=== PATIENT | female | born 1960 | race Caucasian/White ===

== ENCOUNTER → 2018-07-28 09:26 | Outpatient (CLI) | payer BC, SELFPAY ==
--- NOTE | 2018-07-28 09:33 | XR_ITS ---
XR foot RT min 3V HISTORY: ITS.REASON: RT FOOT PAIN ORDERING PHYSICIAN: Melvi Browning PATIENT AGE: 58 years COMPARISON: None FINDINGS: There is mild hallux valgus with osteoarthritis of the first MTP joint and bunion formation at the distal first metatarsal along with mild soft tissue swelling medially at the distal first metatarsal. Small enthesophyte is present at the Achilles insertion. IMPRESSION: Hallux valgus with osteoarthritis and bunion formation at the first MTP joint
--- NOTE | 2018-07-28 09:33 | XR_ITS ---
XR hip LT 2-3V w/pelvis HISTORY: ITS.REASON: BILAT HIP PAIN ORDERING PHYSICIAN: Melvi Browning PATIENT AGE: 58 years COMPARISON: None FINDINGS: No fracture or dislocation is evident. No significant degenerative change. No lytic or blastic change. Unremarkable soft tissues IMPRESSION: Negative hip
--- NOTE | 2018-07-28 09:33 | XR_ITS ---
XR hip RT 2-3V w/pelvis HISTORY: ITS.REASON: BILAT HIP PAIN ORDERING PHYSICIAN: Melvi Browning PATIENT AGE: 58 years COMPARISON: None FINDINGS: No fracture or dislocation is evident. No significant degenerative change. No lytic or blastic change. Unremarkable soft tissues IMPRESSION: Negative hip
== END ==
PROVIDERS: PCP Nurse Practitioner Family; Visit Provider Nurse Practitioner Family
DX: M25.552 Pain in left hip (principal); M25.551 Pain in right hip; M79.671 Pain in right foot
CPT/HCPCS: 73502; 73630

== ENCOUNTER → 2019-10-05 10:02 | Outpatient (CLI) | payer BC, SELFPAY ==
[2019-10-07 09:58] LABS: H. pylori Breath Test Negative (Negative)
== END ==
PROVIDERS: Visit Provider Nurse Practitioner Family
DX: R10.10 Upper abdominal pain, unspecified (principal); R14.0 Abdominal distension (gaseous)
CPT/HCPCS: 83013

== ENCOUNTER → 2020-08-30 11:31 | Outpatient (CLI) | payer BC, SELFPAY | PROVIDERS: PCP Family Medicine; Visit Provider Family Medicine | DX: Z20.828 Contact with and (suspected) exposure to other viral communicable diseases (principal); U07.1 COVID-19 | CPT/HCPCS: U0003 ==

== ENCOUNTER → 2021-04-15 15:30 | Outpatient (CLI) | payer BC, SELFPAY ==
[2021-04-15 16:14] LABS: Basophils % 0.7 % (0.1-2.0); Eosinophils # 0.2 K/mm3 (0.0-0.4); Eosinophils % 3.2 % (0.1-12.0); Hematocrit 39.4 % (37.0-47.0); Hemoglobin 13.1 g/dL (12.2-16.2); Lymphocytes # 1.7 K/mm3 (0.7-4.5); Lymphocytes % 28.7 % (10-50); Mean Corpuscular HGB Conc 33.4 g/dL (31.8-35.4); Mean Corpuscular Hemoglobin 29.4 pg (27.0-31.2); Mean Platelet Volume 8.3 fl (7.4-10.4); Monocytes # 0.4 K/mm3 (0.1-1.0); Monocytes % 7.5 % (1.7-9.3); Neutrophils # 3.5 K/mm3 (1.8-7.8); Platelet Count 227 K/mm3 (142-424); Red Blood Count 4.48 M/mm3 (4.20-5.40); Red Cell Distribution Width 12.9 % (11.5-17.5); White Blood Count 5.8 K/mm3 (4.8-10.8)
[2021-04-15 16:34] LABS: Alanine Aminotransferase 28 U/L (12-78); Albumin Level 4.6 g/dl (3.5-5.0); Albumin/Globulin Ratio 1.7 (1.1-1.8); Alkaline Phosphatase 77 U/L (38-126); Anion Gap 13.1 mEq/L (5-15); Aspartate Amino Transferase 28 U/L (14-36); Bilirubin,Total 0.4 mg/dl (0.2-1.3); Blood Urea Nitrogen 13 mg/dl (7-17); Calcium 9.2 mg/dl (8.4-10.2); Carbon Dioxide 30 mmol/L (22.0-30.0); Chloride 103 mmol/L (98-107); Estimated Glomerular Filt Rate 73 ml/min (>60); GFR (African American) 88 ML/MIN (>60); Globulin 2.7 g/dL (1.3-3.2); Glucose 78 mg/dl (74-100); Potassium 4.1 mmoL/L (3.5-5.1); Sodium 142 mmol/L (136-145); Total Protein,Serum 7.3 g/dl (6.3-8.2)
== END ==
PROVIDERS: Visit Provider Nurse Practitioner Family
DX: R10.9 Unspecified abdominal pain (principal); R11.0 Nausea
CPT/HCPCS: 36415; 80053; 85025

== ENCOUNTER → 2021-07-16 11:55 | Outpatient (CLI) | payer BC, SELFPAY ==
--- NOTE | 2021-07-16 11:59 | XR_ITS ---
PROCEDURE: XR LUMBAR SPINE MIN 4V CLINICAL INDICATION: BACK PAIN, USPECIFIED LOCATION, LATERALITY, AND CHRONICITY COMPARISON: No exams were available for comparison FINDINGS: No fracture or dislocation. No lytic or blastic change. There is normal mineralization. Minimal lumbar curvature convex left. Facet arthritic changes L5-S1. Mild multilevel degenerative disc disease at T11-T12 and L1-S1 most prominent at L4-L5. Other findings:None. IMPRESSION: Degenerative changes as detailed above Dictated by: Bc Brown MD 07/16/2021 17:35 Bc Brown MD in [place] 07/16/2021 17:35
== END ==
PROVIDERS: PCP Family Medicine; Visit Provider Family Medicine
DX: M54.9 Dorsalgia, unspecified (principal)
CPT/HCPCS: 72110

== ENCOUNTER → 2021-11-28 12:43 | Outpatient (CLI) | payer BC, SELFPAY ==
--- NOTE | 2021-11-28 12:52 | CT_ITS ---
FINAL REPORT TECHNIQUE: Thin section axial CT images with coronal reformats were obtained through the neck after the administration of IV contrast. This study was performed with techniques to keep radiation doses as low as reasonably achievable (ALARA). Individualized dose reduction techniques using automated exposure control or adjustment of mA and/or kV according to the patient''s size were employed. CLINICAL HISTORY: HOARSENESS,THYROMEGALY,CERVICAL LYMPHADENOPATHY COMPARISON: July 28, 2016 FINDINGS: There are a few small scattered cervical lymph nodes. No mass is identified. The thyroid is unremarkable. Limited images of the lung apices are unremarkable. The glottis and supraglottic areas are unremarkable. No acute osseous abnormality is identified. IMPRESSION: No acute process. Reviewed, Interpreted and Dictated by Ugo Montoya MD Transcribed by Fabricio Martin Authenticated by Ugo Montoya MD on 11/28/2021 03:40:48 PM [facility]
== END ==
PROVIDERS: PCP Family Medicine; Visit Provider Nurse Practitioner Family
DX: E01.0 Iodine-deficiency related diffuse (endemic) goiter (principal); R59.0 Localized enlarged lymph nodes; R49.0 Dysphonia
CPT/HCPCS: 70491; Q9967

== ENCOUNTER 2022-01-24 10:37 | Emergency (ER) | payer BC, OTHER, SELFPAY ==
[2022-01-24 10:58] VITALS: BP 172/85; PULSE 90; RESP 16; TEMP 36.8; O2SAT 95; BMI 35.5
--- NOTE | 2022-01-24 11:04 | HMH.EDUTC ---
[facility] [place] Disposition Clinical Impression: UTI (urinary tract infection) Qualifiers: Urinary tract infection type: site unspecified Hematuria presence: with hematuria Qualified Code(s): N39.0 - Urinary tract infection, site not specified Disposition: Home, Self-Care Condition on Discharge: Good Instructions: Urinary Tract Infection, DI for Urinary Tract Infection (UTI), Phenazopyridine Additional Instructions: Drink plenty of fluids. Take tylenol or ibuprofen for pain or fever. Take the medications as directed. Follow up with your regular doctor. GO TO THE ER FOR ANY WORSENING SYMPTOMS The pyridium will make your urine turn orange, this is an expected side effect. It will stain your clothes if it comes into contact with them. We will culture the urine. That will tell what bacteria is causing your infection and which antibiotics will treat it best. Sometimes the first antibiotic we prescribe turns out to not work against different bacteria. So, make sure you follow up within 3 days if you are not getting better. Prescriptions: Ondansetron [Zofran 4mg ODT] 4 mg PO Q8HP PRN #20 tab PRN Reason: Nausea Transmission Status: Received by [facility] Sulfamethoxazole/Trimethoprim [Bactrim DS tablet] 1 each PO BID 7 Days #14 tab Transmission Status: Received by [facility] Phenazopyridine HCl [Pyridium 200mg Tablet] 200 pow PO TID #6 tab Transmission Status: Received by [facility] Referrals: Melvi Browning APRN [Primary Care Provider] - Time of Disposition: 12:13 Medical Decision Making - Medical Records Medical records reviewed: No: I reviewed the patient's medical records. - Aaron Inquiry Pt receiving controlled substance: No Vital Signs: 01/24/22 10:58 01/24/22 12:16 Temperature 98.2 F 98.2 F Temperature Source Oral Pulse Rate 90 Pulse Rate [Left Radial] 90 Respiratory Rate 16 16 Blood Pressure 172/85 H Blood Pressure [Right Arm] 172/85 H Blood Pressure Mean [Right Arm] 114 02 Sat by Pulse Oximetry 95 - Lab Data Lab results reviewed: Yes: I reviewed the patient's lab results. Lab Results 01/24/22 11:55: Urine Color Yellow, Urine Appearance Cloudy, Urine pH 7.0, Ur Specific [place] 1.015, Urine Protein Negative, Urine Glucose (UA) Negative, Urine Ketones Negative, Urine Blood Trace, Urine Nitrate Negative, Urine Bilirubin Negative, Urine Urobilinogen 0.2, Ur Leukocyte Esterase 3+ A Orders (Tests/Meds): ORDERS Category Date Time Status Urine Culture Stat Micro 01/24/22 10:55 Results [facility] [place] HPI - General Stated complaint: possible uti Time Seen by Provider: 01/24/22 11:04 Mode of Arrival: Ambulatory Source of Information: Patient Limitations: No Limitations Description of Symptoms (Recalled from Triage Doc. by RN): UTI symptoms that started 3 days ago. hurts to pee. HEENT Symptoms (Recalled from RN notes): No Resp Symptoms (Recalled from RN notes): No Skin Symptoms (Recalled from RN notes): No MS Symptoms (Recalled from RN notes): No Functional Status (Recalled from RN notes): wnl - History of Present Illness Provider Complaint: She states that for the past 3 days she has had burning with urination and low back pain. She gets uti's occasionally and this feels like her normal symptoms with them. - Related Data Home Medications Medication Instructions Recorded Confirmed hydrochlorothiazide 12.5 mg capsule 12.5 mg PO QDAY 10/06/17 07/04/19 meloxicam 7.5 mg/5 mL oral 7.5 mg PO QDAY 10/06/17 07/04/19 suspension pantoprazole 40 mg granules 40 mg PO QAM 10/06/17 07/04/19 delayed-release for susp in packet rosuvastatin 10 mg tablet 10 mg PO ONCE 10/06/17 07/04/19 estradiol 25 mcg vaginal tablet 25 mcg VAGINAL DAILY tab 05/31/19 07/04/19 lactobacillus combination no.8 3 3,000 mmu cells PO DAILY 05/31/19 07/04/19 billion cell capsule Ascorbic Acid [Vitamin C] 250 mg PO DAILY 06/21/19 07/04/19 Fexofenadine HCl [Diana Allerg
[2022-01-24 11:56] LABS: Apearance,Urine Cloudy (Clear); Color,Urine Yellow (Yellow)
[2022-01-24 11:57] LABS: Bilirubin,Urine Negative (Negative); Blood, Urine Trace (Negative); Glucose,Urine (UA) Negative (Negative); Ketones,Urine Negative (Negative); Protein,Urine Negative (Negative); Specific Gravity, Urine 1.015 (1.005-1.030)
[2022-01-24 11:58] LABS: UTC Leukocyte Esterase,Urine 3+ (Negative); UTC Nitrate,Urine Negative (Negative); Urobilinogen,Urine 0.2 EU/dl (0.2)
[2022-01-24 12:16] VITALS: BP 172/85; PULSE 90; RESP 16; TEMP 36.8
== END 2022-01-24 12:17 | disposition home or self-care (01) ==
PROVIDERS: Emergency Provider Nurse Practitioner Family; PCP Nurse Practitioner Family
DX: N39.0 Urinary tract infection, site not specified (principal); M54.50 Low back pain, unspecified; I10 Essential (primary) hypertension; K21.9 Gastro-esophageal reflux disease without esophagitis; E78.5 Hyperlipidemia, unspecified; M19.90 Unspecified osteoarthritis, unspecified site; J98.4 Other disorders of lung; Z88.0 Allergy status to penicillin; J45.909 Unspecified asthma, uncomplicated; Z88.1 Allergy status to other antibiotic agents; Z88.3 Allergy status to other anti-infective agents; Z82.49 Family history of ischemic heart disease and other diseases of the circulatory system; Z80.9 Family history of malignant neoplasm, unspecified
CPT/HCPCS: 81003; 87086; 87088; 87186; 99213; G0463

== ENCOUNTER 2022-04-25 09:48 | Emergency (ER) | payer BC, OTHER, SELFPAY ==
[2022-04-25 10:15] VITALS: BP 150/75; PULSE 85; RESP 19; TEMP 36.9; O2SAT 98; BMI 36.3
--- NOTE | 2022-04-25 10:33 | HMH.EDUTC ---
[facility] [place] Disposition Clinical Impression: Sinusitis Qualifiers: Sinusitis location: maxillary Chronicity: acute Recurrence: non-recurrent Qualified Code(s): J01.00 - Acute maxillary sinusitis, unspecified Disposition: Home, Self-Care Condition on Discharge: Good Instructions: DI for Sinusitis Additional Instructions: Start antibiotic patient to take as ordered for a full length of time even if you feel better. Sinus infections do not get better overnight. It may take 2-3 days to notice much improvement so be sure to use conservative measures as discussed for symptoms. Flonase 1 spray each nostril daily to help with nasal congestion, sinus and ear pressure/information Increase fluids Humidifier/vaporizer as needed Tylenol and ibuprofen as needed for fever or pain. If symptoms do not improve or get worse return or be seen in the ER Follow-up with primary care this week Prescriptions: predniSONE [Prednisone 20mg Tab] 20 mg PO BID #10 tab Transmission Status: Pending to [facility] Azithromycin [Zithromax 250mg tab] 250 mg PO DIRECTED #6 tab Transmission Status: Pending to [facility] Referrals: Melvi Browning APRN [Primary Care Provider] - Time of Disposition: 10:56 Medical Decision Making - Aaron Inquiry Pt receiving controlled substance: No Vital Signs: 04/25/22 10:15 Temperature 98.4 F Temperature Source Oral Pulse Rate [Left Brachial] 85 Respiratory Rate 19 Blood Pressure [Left Arm] 150/75 H Blood Pressure Mean [Left Arm] 100 Blood Pressure Source [Left Arm] Automatic Cuff Blood Pressure Position [Left Arm] Sitting 02 Sat by Pulse Oximetry 98 Oxygen Delivery Method Room Air - Lab Data Lab Results 04/25/22 10:33: Strep [facility] Negative Orders (Tests/Meds): ORDERS Category Date Time Status Strep Screen Confirmation Stat Micro 04/25/22 10:33 Received [facility] [place] HPI - General Chief complaint: Urgent [facility] Stated complaint: sore throat,cough Time Seen by Provider: 04/25/22 10:34 Mode of Arrival: Ambulatory Source of Information: Patient Limitations: No Limitations Description of Symptoms (Recalled from Triage Doc. by RN): PATIENT C/O SORE THROAT AND DRY COUGH X 1 WEEK HEENT Symptoms (Recalled from RN notes): Yes Resp Symptoms (Recalled from RN notes): Yes Skin Symptoms (Recalled from RN notes): No MS Symptoms (Recalled from RN notes): No Functional Status (Recalled from RN notes): WNL - Related Data Home Medications Medication Instructions Recorded Confirmed hydrochlorothiazide 12.5 mg capsule 12.5 mg PO QDAY 10/06/17 07/04/19 meloxicam 7.5 mg/5 mL oral 7.5 mg PO QDAY 10/06/17 07/04/19 suspension pantoprazole 40 mg granules 40 mg PO QAM 10/06/17 07/04/19 delayed-release for susp in packet rosuvastatin 10 mg tablet 10 mg PO ONCE 10/06/17 07/04/19 estradiol 25 mcg vaginal tablet 25 mcg VAGINAL DAILY tab 05/31/19 07/04/19 lactobacillus combination no.8 3 3,000 mmu cells PO DAILY 05/31/19 07/04/19 billion cell capsule Ascorbic Acid [Vitamin C] 250 mg PO DAILY 06/21/19 07/04/19 Fexofenadine HCl [Diana Allergy] 60 mg PO DAILY 06/21/19 07/04/19 Lysine 500 mg PO DAILY 06/21/19 07/04/19 Oxybutynin Chloride [Oxybutynin 10 mg PO DAILY 06/21/19 07/04/19 Chloride ER] Beclomethasone Dipropionate [Qvar 10.6 gm IH DAILY 06/22/19 07/04/19 Redihaler] Sodium, Potassium,Mag Sulfates 177 ml PO DAILY 06/22/19 07/04/19 [Suprep Bowel Prep Kit] Previous Rx's Medication Instructions Recorded Ondansetron [Zofran 4mg ODT] 4 mg PO Q4H PRN #10 tab.rapdis 09/30/19 raNITIdine HCL [Ranitidine HCl] 150 mg PO BID #60 tab 09/30/19 Ondansetron [Zofran 4mg ODT] 4 mg PO Q8HP PRN #20 tab 01/24/22 Phenazopyridine HCl [Pyridium 200 pow PO TID #6 tab 01/24/22 200mg Tablet] Sulfamethoxazole/Trimethoprim 1 each PO BID 7 Days #14 tab 01/24/22 [Bactrim DS tablet] Azithromycin [Zithromax 250mg 250 mg PO DIRECTED #6 tab 04/25/22 tab
[2022-04-25 10:34] LABS: UTC Strep Screen (Rapid) Negative (Negative)
[2022-04-25 10:55] VITALS: BP 150/75; PULSE 85; RESP 19; TEMP 36.9; O2SAT 98
[2022-04-25 11:15] LABS: Adenovirus,PCR Not Detected (NotDetected); Bordetella Pertussis Not Detected (NotDetected); Chlamydophila Pneumoniae, PCR Not Detected (NotDetected); Coronavirus 19, PCR Not Detected (NotDetected); Coronavirus 229E Not Detected (NotDetected); Coronavirus NL63 Not Detected (NotDetected); Coronavirus OC43 Not Detected (NotDetected); Coronovirus HKU1,PCR Not Detected (NotDetected); Human Metapneumovirus Not Detected (NotDetected); Influenza A, PCR Not Detected (NotDetected); Influenza AH1, 2009 Not Detected (NotDetected); Influenza AH1, PCR Not Detected (NotDetected); Influenza AH3,PCR Not Detected (NotDetected); Influenza B, PCR Not Detected (NotDetected); Mycoplasma Pneumoniae, PCR Not Detected (NotDetected); Parainfluenza 1, PCR Not Detected (NotDetected); Parainfluenza 2, PCR Not Detected (NotDetected); Parainfluenza 4, PCR Not Detected (NotDetected); Respiratory Syncytial Virus Not Detected (NotDetected); Rhinovirus/Enterovirus Not Detected (NotDetected)
[2022-04-25 13:28] LABS: Parainfluenza 3, PCR Detected (NotDetected)
== END 2022-04-25 11:01 | disposition home or self-care (01) ==
PROVIDERS: Emergency Provider Nurse Practitioner Family; PCP Nurse Practitioner Family
DX: J01.00 Acute maxillary sinusitis, unspecified (principal)
CPT/HCPCS: 87581; 87632; 87798; 87880; 99212; C9803; G0463; U0003; U0005

== ENCOUNTER → 2022-09-09 06:41 | Outpatient (CLI) | payer BC, OTHER, SELFPAY ==
--- NOTE | 2022-09-09 06:42 | CA_ITS ---
FINAL REPORT TECHNIQUE: Color Doppler, duplex Doppler and klein scale sonography of the bilateral neck arterial vasculature was performed. Velocities were measured in the carotid arteries. Stenosis evaluation based on the validated velocity criteria. CLINICAL HISTORY: chest pain, carotid bruits FINDINGS: The peak systolic velocity of the right common carotid artery is 96 cm/s. The peak systolic velocity of the right internal carotid artery is 116 cm/s and end diastolic velocity 47 cm/s. The ICA/CCA ratio is 1.2. A mild amount of plaque is present. The right external carotid artery is patent. The right vertebral artery is patent with antegrade flow. The peak systolic velocity of the left common carotid artery is 97 cm/s. The peak systolic velocity of the left internal carotid artery is 117 cm/s and end diastolic velocity 45 cm/s. The ICA/CCA ratio is 1.2. A mild amount of plaque is present. The left external carotid artery is patent.The left vertebral artery is patent with antegrade flow. IMPRESSION: Less than 50% bilateral carotid stenoses. Bilateral patent vertebral arteries with antegrade flow. If indicated, CTA or MRA could further evaluate. Reviewed, Interpreted and Dictated by Neno Hernandez III, MD Transcribed by Jacqueline Hester Authenticated and [facility]
--- NOTE | 2022-09-09 08:26 | HMH.ITSHM ---
Current Home Medications as stated by this patient Elena Infante or inventory representative. []ROSUVASTATIN PANTOPRAZOLE OXYBUTYNIN MELOXICAM HCTZ FEXOFENADINE VITAMIN C AMLODIPINE
== END ==
PROVIDERS: PCP Nurse Practitioner Family; Visit Provider Nurse Practitioner Family
DX: R06.09 Other forms of dyspnea (principal); R07.89 Other chest pain; I10 Essential (primary) hypertension; R94.31 Abnormal electrocardiogram [ECG] [EKG]
CPT/HCPCS: 78452; 93017; 93306; 93880; A9502

== ENCOUNTER → 2023-01-19 15:10 | Outpatient (CLI) | payer BC, OTHER, SELFPAY ==
--- NOTE | 2023-01-19 15:17 | XR_ITS ---
FINAL REPORT CLINICAL HISTORY: HAND PAIN FINDINGS: Left hand Three views were obtained. There is no acute fracture or dislocation. Mild and moderate degenerative changes are present. There are loose bodies adjacent to the 1st carpometacarpal and 1st interphalangeal joints. IMPRESSION: Degenerative changes and loose bodies as detailed above. Reviewed, Interpreted and Dictated by Neno Hernandez III, MD Transcribed by Shari Nolasco Authenticated and [facility]
--- NOTE | 2023-01-19 15:17 | XR_ITS ---
FINAL REPORT CLINICAL HISTORY: .Pain, no injury. FINDINGS: Right hand Three views were obtained. There is no acute fracture or dislocation. Mild and moderate degenerative changes are present. There is a loose body adjacent to the 1st interphalangeal joint. IMPRESSION: Degenerative changes and loose body as detailed above. Reviewed, Interpreted and Dictated by Neno Hernandez III, MD Transcribed by Shari Nolasco Authenticated and [facility]
== END ==
PROVIDERS: PCP Nurse Practitioner Family; Visit Provider Nurse Practitioner Family
DX: M79.642 Pain in left hand (principal); M79.641 Pain in right hand
CPT/HCPCS: 73130

== ENCOUNTER → 2023-07-16 14:35 | Outpatient (CLI) | payer BC, OTHER, SELFPAY ==
--- NOTE | 2023-07-16 14:36 | MR_ITS ---
FINAL REPORT CLINICAL HISTORY: abnormal LE NCS pain when standing long period of time numbness in bilateral feet COMPARISON: None FINDINGS: Multiplanar MR imaging of the lumbar spine was performed without contrast. On the sagittal T2-weighted images, disc degeneration is seen throughout. There is mild degenerative endplate change at the L4-5 level. Multiple Schmorl's nodes are identified. The vertebral alignment is normal. There is no evidence of fracture. No bony mass is identified. The conus has an unremarkable appearance. L1-2: An annular bulge is present along with a small central disc protrusion. There is no significant canal stenosis or neural foraminal narrowing. L2-3: An annular bulge is present along with a small central disc protrusion. There is also a left foraminal disc protrusion with moderate left neural foraminal narrowing. L3-4: An annular bulge is present. Mild bilateral neural foraminal narrowing is present. L4-5: An annular bulge is present with osteophytes and facet osteoarthropathy. There is a left paracentral disc protrusion with moderate bilateral neural foraminal narrowing. L5-S1: An annular bulge is present with osteophytes. There is a small central disc protrusion, with mild right and moderate left neural foraminal narrowing. IMPRESSION: Multilevel degenerative disc disease and spondylosis as described. Reviewed, Interpreted and Dictated by Neno Hernandez III, MD Transcribed by Cait Flood Authenticated and . [facility]
== END ==
PROVIDERS: PCP Nurse Practitioner Family; Visit Provider Nurse Practitioner Family
DX: R94.130 Abnormal response to nerve stimulation, unspecified (principal); G62.9 Polyneuropathy, unspecified
CPT/HCPCS: 72148; 76376

== ENCOUNTER → 2023-07-20 11:49 | Outpatient (CLI) | payer BC, OTHER, SELFPAY ==
--- NOTE | 2023-07-20 11:54 | XR_ITS ---
FINAL REPORT CLINICAL HISTORY: left elbow pain FINDINGS: LEFT ELBOW 3 views were obtained. There is no acute fracture or dislocation. There is no joint effusion. There are mild degenerative change. There is no soft tissue abnormality. IMPRESSION: No acute process. Reviewed, Interpreted and Dictated by Neno Hernandez III, MD Transcribed by Fabricio Martin Authenticated and [facility]
== END ==
PROVIDERS: PCP Nurse Practitioner Family; Visit Provider Nurse Practitioner Family
DX: M25.522 Pain in left elbow (principal)
CPT/HCPCS: 73080

== ENCOUNTER 2023-09-29 09:30 | Outpatient (RCR) | payer BC, OTHER, SELFPAY | END 2023-09-29 10:30 | disposition home or self-care (01) | LOC: PT 09:30 | PROVIDERS: PCP Nurse Practitioner Family; Visit Provider Orthopaedic Surgery | DX: M51.36 Other intervertebral disc degeneration, lumbar region (principal); M54.50 Low back pain, unspecified | CPT/HCPCS: 97010; 97012; 97014; 97110; 97163; 97530; 97535; G0283 ==

== ENCOUNTER 2023-10-12 07:19 | Day surgery (SDC) | payer BC, OTHER, SELFPAY ==
[2023-10-08 10:45] VITALS: BMI 35.8
[2023-10-12] VITALS (10 sets, daily range): BP systolic 95–152; BP diastolic 48–80; PULSE 62–94; RESP 18; TEMP 36.1–36.8; O2SAT 90–97
[2023-10-12] MEDS: LACTATED RINGERS 1000ML 1,000 ML 100 ML IV (07:39)
--- NOTE | 2023-10-12 07:45 | EXP.ANES.CKL ---
[facility] Disclaimer: The information contained in this section may have been updated after the patient was seen, as this information can be updated by other users. Medical History Acid reflux Allergies Asthma Bulging disc Ear infection History of COVID-19 Hyperlipidemia Hypertension Irritable bowel syndrome (IBS) Sinus headache Urinary tract infection Surgical History H/O: hysterectomy History of cholecystectomy Family History Father Cancer Diabetes Heart attack Hypertension Mother Stroke Social History Smoking Status: Never smoker alcohol intake: current substance use type: denies use current occupational status: retired Travel in the last 8 weeks: None caffeine: Yes [facility] Anesthesia Checklist Patient Identification Patient Identification: Arm Band and Verbal (Name & ) Structural Data Admitted From: Home Planned Operative Procedure/s: EGD/Colonoscopy Consent for Planned Operative Procedure(s) Verified: Yes NPO Status Verified Time NPO: 00:00 Additional verifications Anesthesia Reactions: No Airway Assessment Mallampati Score:: Class II C-Spine Mobility Assessed: Yes TMJ Mobility Assessed: Yes Dentition: Good Dentition Neurological Assessment Level of Consciousness: Awake Hx Seizures: No Numbness or tingling in extremities: No Anesthesia Plan Anesthesia Risk discussed: Yes Anesthesia Plan: Verified ASA Class: III Anesthesia Type: MAC
--- NOTE | 2023-10-12 07:50 | HMH.SCOPE ---
Procedure: Date: 10/12/23 Patient Date of :: 1960 Procedure Performed:: Esophagogastroduodenoscopy with biopsy Colonoscopy Indications:: History of colon polyps History of intestinal metaplasia of gastric mucosa Last esophagogastroduodenoscopy/colonoscopy in June 2019 was somewhat complicated by fairly profound spasticity and significant tortuosity. Adenomatous polyps excised at 35 cm and at 40 cm. Gastric biopsies at that time negative for metaplasia. Performing Provider:: Tyshawn Khan MD Referring Provider:: . Sedation:: Monitored anesthesia care Procedure:: After informed consent was obtained the patient was taken to the endoscopy suite. Sedation ensued after the patient was transferred to the left lateral decubitus position. Pulse, blood pressure, and oxygen saturation were monitored throughout the procedure. The endoscope was advanced beyond the duodenal bulb. Retroflexion within the gastric lumen was accomplished. The gastroscope was carefully removed. Digital rectal exam revealed no significant abnormality. The colonoscope was placed in position. The entire colon was evaluated. The colonoscope was carefully removed and the patient was transferred to recovery in stable condition. Please see findings and specimens below for detail. Findings:: Mild patchy gastritis Mid gastric body fundic gland polyp Bowel preparation fair Profound sigmoid tortuosity Scattered sigmoid diverticulosis Specimens:: Antral biopsy Mid gastric body polyp Recommendations:: Follow-up pathology Repeat colonoscopy in 3-5 years secondary to history of complex polyps and profound tortuosity. Consider next colonoscopy to be performed by the gastroenterology service secondary to these findings. Complications:: No immediate Estimated blood obtained (mL): 1 Colonoscopy Component Colonoscopy Component Was a colonoscopy performed during today's procedure?: Yes Recommended follow up colonoscopy of at least 10 years?: No If no, follow up colonoscopy recommended in ___ years?: (See above) Reason for not recommending >/= 10 yr follow-up interval?: (See above)
== END 2023-10-12 10:55 | disposition home or self-care (01) ==
PROVIDERS: PCP Nurse Practitioner Family; Visit Provider Surgery
PROC: 0DJ08ZZ Inspection of Upper Intestinal Tract, Via Natural or Artificial Opening Endoscopic (ICD-10-PCS; CPT 43235; principal; 2023-10-12 08:30)
DX: Z12.11 Encounter for screening for malignant neoplasm of colon (principal); K29.50 Unspecified chronic gastritis without bleeding; K56.2 Volvulus; K57.30 Diverticulosis of large intestine without perforation or abscess without bleeding; K31.7 Polyp of stomach and duodenum
CPT/HCPCS: 43239; 45378; J1610; J2704

== ENCOUNTER 2023-11-01 08:52 | Outpatient (CLI) | payer BC, OTHER, SELFPAY ==
[2023-11-01 09:10] LABS: Basophils # 0.1 K/mm3 (0-0.2); Basophils % 0.9 % (0.1-2.0); Eosinophils # 0.5 K/mm3 (0.0-0.4); Eosinophils % 8.2 % (0.1-12.0); Hemoglobin 13.4 g/dL (12.2-16.2); Lymphocytes # 1.6 K/mm3 (0.7-4.5); Lymphocytes % 28.1 % (10-50); Mean Corpuscular HGB Conc 34.3 g/dL (31.8-35.4); Mean Corpuscular Hemoglobin 30.2 pg (27.0-31.2); Mean Platelet Volume 8.8 fl (7.4-10.4); Monocytes # 0.3 K/mm3 (0.1-1.0); Monocytes % 5.9 % (1.7-9.3); Neutrophils # 3.3 K/mm3 (1.8-7.8); Platelet Count 223 K/mm3 (142-424); Red Blood Count 4.43 M/mm3 (4.20-5.40); Red Cell Distribution Width 13.2 % (11.5-17.5); White Blood Count 5.8 K/mm3 (4.8-10.8)
[2023-11-01 09:55] LABS: Alanine Aminotransferase 35 U/L (12-78); Albumin Level 4.5 g/dl (3.5-5.0); Alkaline Phosphatase 73 U/L (38-126); Anion Gap 11.3 mEq/L (5-15); Aspartate Amino Transferase 31 U/L (14-36); Bilirubin,Direct 0.2 mg/dl (0.0-0.4); Bilirubin,Indirect 0.3 mg/dL (0.0-0.9); Bilirubin,Total 0.5 mg/dl (0.2-1.3); Bilirubin,Unconjugated 0.3 mg/dL (0.0-1.1); Blood Urea Nitrogen 20 mg/dl (7-17); Calcium 9.4 mg/dl (8.4-10.2); Carbon Dioxide 28 mmol/L (22.0-30.0); Chloride 105 mmol/L (98-107); Chol/HDL Ratio 3.1 (1-3.5); Cholesterol 173 mg/dl (140-200); Estimated Glomerular Filt Rate 85 ml/min (>60); GFR (African American) 102 ML/MIN (>60); Glucose 96 mg/dl (74-100); HDL Cholesterol 55 mg/dl (40-60); Magnesium 2.2 mg/dl (1.6-2.3); Potassium 4.3 mmoL/L (3.5-5.1); Sodium 140 mmol/L (136-145); Total Protein,Serum 7.1 g/dl (6.3-8.2); Triglycerides 150 mg/dl (30-150); VLDL Cholesterol 30 mg/dL (0-40)
[2023-11-01 10:07] LABS: Direct LDL Cholesterol 81.44 mg/dL (100-129)
[2023-11-01 10:12] LABS: Free T4 (Free Thyroxine) 0.93 ng/dl (0.78-2.19)
[2023-11-01 10:26] LABS: Thyroid Stimulating Hormone 2.51 uIU/mL (0.465-4.68)
== END 2023-11-01 23:59 ==
LOC: LAB 08:53
PROVIDERS: PCP Nurse Practitioner Family; Visit Provider Physician Assistant
DX: E78.5 Hyperlipidemia, unspecified (principal); I10 Essential (primary) hypertension; R94.31 Abnormal electrocardiogram [ECG] [EKG]; Z79.899 Other long term (current) drug therapy
CPT/HCPCS: 36415; 80048; 80061; 80076; 83735; 84439; 84443; 85025

== ENCOUNTER 2024-03-01 12:25 | Outpatient (CLI) | payer BC, OTHER, SELFPAY ==
--- NOTE | 2024-03-01 12:34 | XR_ITS ---
FINAL REPORT CLINICAL HISTORY: right knee pain, swelling x few weeks COMPARISON: None FINDINGS: Three views of the right knee were obtained. There is no acute fracture or dislocation. The joint spaces are intact. There is no soft tissue abnormality. IMPRESSION: No acute bony abnormality. Reviewed, Interpreted and Dictated by Ugo Montoya MD Transcribed by Heather Sarkar Authenticated and [facility]
== END 2024-03-01 23:59 | disposition home or self-care (01) ==
LOC: RAD 12:26
PROVIDERS: PCP Nurse Practitioner Family; Visit Provider Nurse Practitioner Family
DX: M25.561 Pain in right knee (principal)
CPT/HCPCS: 73562

== ENCOUNTER 2024-04-18 12:07 | Outpatient (CLI) | payer BC, OTHER, SELFPAY ==
[2024-04-18 12:33] LABS: Basophils % 0.5 % (0.1-2.0); Eosinophils # 0.4 K/mm3 (0.0-0.4); Eosinophils % 6.8 % (0.1-12.0); Hemoglobin 12.5 g/dL (12.2-16.2); Lymphocytes # 1.6 K/mm3 (0.7-4.5); Lymphocytes % 25.2 % (10-50); Mean Corpuscular HGB Conc 33.9 g/dL (31.8-35.4); Mean Corpuscular Volume 91.4 fl (81-99); Mean Platelet Volume 9.4 fl (7.4-10.4); Monocytes # 0.4 K/mm3 (0.1-1.0); Monocytes % 5.8 % (1.7-9.3); Neutrophils % 61.6 % (37.0-80.0); Platelet Count 218 K/mm3 (142-424); Red Blood Count 4.05 M/mm3 (4.20-5.40); Red Cell Distribution Width 14.1 % (11.5-17.5); White Blood Count 6.4 K/mm3 (4.8-10.8)
[2024-04-18 13:42] LABS: Alanine Aminotransferase 27 U/L (12-78); Albumin Level 4.2 g/dl (3.5-5.0); Albumin/Globulin Ratio 1.7 (1.1-1.8); Alkaline Phosphatase 85 U/L (38-126); Anion Gap 11.9 mEq/L (5-15); Aspartate Amino Transferase 30 U/L (14-36); Bilirubin,Total 0.6 mg/dl (0.2-1.3); Blood Urea Nitrogen 16 mg/dl (7-17); Calcium 9.4 mg/dl (8.4-10.2); Carbon Dioxide 27 mmol/L (22.0-30.0); Chloride 106 mmol/L (98-107); Estimated Glomerular Filt Rate 101 ml/min (>60); GFR (African American) 122 ML/MIN (>60); Globulin 2.5 g/dL (1.3-3.2); Glucose 90 mg/dl (74-100); Magnesium 1.9 mg/dl (1.6-2.3); Potassium 3.9 mmoL/L (3.5-5.1); Sodium 141 mmol/L (136-145); Total Protein,Serum 6.7 g/dl (6.3-8.2)
== END 2024-04-18 23:59 | disposition home or self-care (01) ==
LOC: LAB.DROPOF 12:07
PROVIDERS: PCP Nurse Practitioner Family; Visit Provider Nurse Practitioner Family
DX: R30.0 Dysuria (principal); N39.0 Urinary tract infection, site not specified; R25.2 Cramp and spasm
CPT/HCPCS: 80053; 83735; 85025; 87086; 87088; 87186

== ENCOUNTER 2024-05-08 13:05 | Outpatient (CLI) | payer BC, OTHER, SELFPAY ==
[2024-05-08 13:02] LABS: Microscopic, Urine URINE MICROSCOPIC (MICROSCOPIC)
[2024-05-08 14:24] LABS: Appearance,Urine CLEAR (Clear); Bilirubin,Urine Negative (Negative); Blood, Urine Negative (Negative); Color,Urine YELLOW (Yellow); Glucose,Urine (UA) Negative (Negative); Ketones,Urine Negative (Negative); Leukocyte Esterase,Urine Negative (Negative); Nitrate,Urine Negative (Negative); Protein,Urine Negative (Negative); Urobilinogen,Urine 0.2 EU/dl (0.2)
[2024-05-08 15:21] LABS: WBC,Urine Occasional #/hpf (0-3)
[2024-05-08 15:23] LABS: Bacteria,Urine Trace /lpf
== END 2024-05-08 23:59 | disposition home or self-care (01) ==
LOC: LAB.DROPOF 13:05
PROVIDERS: PCP Nurse Practitioner Family; Visit Provider Nurse Practitioner Family
DX: N30.00 Acute cystitis without hematuria (principal); N32.81 Overactive bladder
CPT/HCPCS: 81001; 87086

== ENCOUNTER 2024-07-19 12:10 | Outpatient (CLI) | payer BC, OTHER, SELFPAY ==
[2024-07-19 12:23] LABS: Microscopic, Urine URINE MICROSCOPIC (MICROSCOPIC)
[2024-07-19 12:27] LABS: Basophils # 0.1 K/mm3 (0-0.2); Basophils % 0.9 % (0.1-2.0); Eosinophils # 0.3 K/mm3 (0.0-0.4); Hematocrit 38.2 % (37.0-47.0); Lymphocytes # 1.7 K/mm3 (0.7-4.5); Lymphocytes % 32.4 % (10-50); Mean Corpuscular HGB Conc 34.1 g/dL (31.8-35.4); Mean Corpuscular Hemoglobin 30.7 pg (27.0-31.2); Mean Corpuscular Volume 90.3 fl (81-99); Mean Platelet Volume 8.9 fl (7.4-10.4); Monocytes # 0.3 K/mm3 (0.1-1.0); Neutrophils % 56.7 % (37.0-80.0); Platelet Count 216 K/mm3 (142-424); Red Blood Count 4.23 M/mm3 (4.20-5.40); Red Cell Distribution Width 13.3 % (11.5-17.5); White Blood Count 5.3 K/mm3 (4.8-10.8)
[2024-07-19 12:44] LABS: Albumin Level 4.5 g/dl (3.5-5.0)
[2024-07-19 12:45] LABS: Chloride 108 mmol/L (98-107); Potassium 3.9 mmoL/L (3.5-5.1); Sodium 141 mmol/L (136-145)
[2024-07-19 12:47] LABS: Alanine Aminotransferase 39 U/L (12-78); Alkaline Phosphatase 60 U/L (38-126); Anion Gap 7.9 mEq/L (5-15); Aspartate Amino Transferase 35 U/L (14-36); Bilirubin,Total 0.4 mg/dl (0.2-1.3); Blood Urea Nitrogen 17 mg/dl (7-17); Carbon Dioxide 29 mmol/L (22.0-30.0); Estimated Glomerular Filt Rate 72 ml/min (>60); GFR (African American) 87 ML/MIN (>60)
[2024-07-19 12:48] LABS: Albumin/Globulin Ratio 1.8 (1.1-1.8); Calcium 9.7 mg/dl (8.4-10.2); Chol/HDL Ratio 2.6 (1-3.5); Cholesterol 156 mg/dl (140-200); Globulin 2.5 g/dL (1.3-3.2); Glucose 116 mg/dl (74-100); HDL Cholesterol 61 mg/dl (40-60); Magnesium 2.1 mg/dl (1.6-2.3); Triglycerides 127 mg/dl (30-150); VLDL Cholesterol 25 mg/dL (0-40)
[2024-07-19 12:50] LABS: Appearance,Urine CLEAR (Clear); Bilirubin,Urine Negative (Negative); Blood, Urine Negative (Negative); Color,Urine YELLOW (Yellow); Glucose,Urine (UA) Negative (Negative); Ketones,Urine Negative (Negative); Leukocyte Esterase,Urine Negative (Negative); Nitrate,Urine Negative (Negative); PH,Urine 6.5 (5.0-8.5); Protein,Urine Negative (Negative); Urobilinogen,Urine 0.2 EU/dl (0.2)
[2024-07-19 12:59] LABS: Direct LDL Cholesterol 64.39 mg/dL (100-129)
[2024-07-19 12:59] LABS: Bacteria,Urine Trace /lpf; Squamous Epithelial Cell,Urine Occasional #/hpf (0-5)
[2024-07-19 13:22] LABS: Thyroid Stimulating Hormone 2.07 uIU/mL (0.465-4.68)
== END 2024-07-19 23:59 | disposition home or self-care (01) ==
LOC: LAB 12:10
PROVIDERS: PCP Nurse Practitioner Family; Visit Provider Nurse Practitioner Family
DX: R06.09 Other forms of dyspnea (principal); E78.2 Mixed hyperlipidemia; N30.00 Acute cystitis without hematuria; M54.9 Dorsalgia, unspecified
CPT/HCPCS: 36415; 80050; 80053; 80061; 81001; 83735; 84443; 85025; 87086

== ENCOUNTER 2024-07-24 10:46 | Outpatient (CLI) | payer BC, OTHER, SELFPAY | END 2024-07-24 23:59 | disposition home or self-care (01) | LOC: RT 10:47 | PROVIDERS: PCP Nurse Practitioner Family; Visit Provider Nurse Practitioner Family | DX: R94.31 Abnormal electrocardiogram [ECG] [EKG] (principal) | CPT/HCPCS: 93225; 93227 ==

== ENCOUNTER 2024-07-31 10:35 | Outpatient (CLI) | payer BC, OTHER, SELFPAY | END 2024-07-31 23:59 | disposition home or self-care (01) | LOC: RT 10:36 | PROVIDERS: PCP Nurse Practitioner Family; Visit Provider Nurse Practitioner Family | DX: R94.31 Abnormal electrocardiogram [ECG] [EKG] (principal) | CPT/HCPCS: 93270 ==

== ENCOUNTER 2024-08-15 13:51 | Outpatient (CLI) | payer BC, OTHER, SELFPAY ==
[2024-08-15 17:53] LABS: Coronavirus 19, PCR Not Detected (NotDetected); Influenza A, PCR Not Detected (NotDetected); Influenza B, PCR Not Detected (NotDetected)
== END 2024-08-15 23:59 | disposition home or self-care (01) ==
LOC: LAB.DROPOF 08-16 10:07
PROVIDERS: PCP Nurse Practitioner Family; Visit Provider Nurse Practitioner Family
DX: R68.89 Other general symptoms and signs (principal)
CPT/HCPCS: 87636

== ENCOUNTER 2024-09-26 18:26 | Emergency (ER) | payer BC, OTHER, SELFPAY ==
--- NOTE | 2024-09-26 18:29 | XR_ITS ---
PROCEDURE INFORMATION: Exam: XR Right Wrist Exam date and time: 09/26/2024 6:40 PM Age: 64 years old Clinical indication: Injury or trauma; Fall; Other: Pain TECHNIQUE: Imaging protocol: Radiologic exam of the right wrist. Views: 3 or more views. COMPARISON: CR XR WRIST RT MIN 3V 09/26/2024 6:40 PM FINDINGS: Bones/joints: Mildly comminuted and impacted distal radius fracture with mild dorsal displacement and least partial articular extension. Severe triscaphe and 1st carpometacarpal joint osteoarthritis. Soft tissues: Distal forearm and wrist soft tissue swelling. IMPRESSION: Mildly comminuted and impacted distal radius fracture with mild dorsal displacement and least partial articular extension.
--- NOTE | 2024-09-26 18:29 | XR_ITS ---
PROCEDURE INFORMATION: Exam: XR Right Hand Exam date and time: 09/26/2024 6:40 PM Age: 64 years old Clinical indication: Injury or trauma; Fall; Other: Pain TECHNIQUE: Imaging protocol: Radiologic exam of the right hand. Views: 3 or more views. COMPARISON: CR XR HAND RT MIN 3V 01/19/2023 3:20 PM FINDINGS: Bones/joints: Mildly comminuted and impacted distal radius fracture with mild dorsal displacement and least partial articular extension. Severe triscaphe and 1st carpometacarpal joint osteoarthritis. Additional osteoarthritic degenerative changes of the interphalangeal joints, most severe at the thumb IP and 2nd/3rd DIP joints. Soft tissues: Distal forearm and wrist soft tissue swelling. IMPRESSION: Mildly comminuted and impacted distal radius fracture with mild dorsal displacement and least partial articular extension.
--- NOTE | 2024-09-26 18:30 | XR_ITS ---
PROCEDURE INFORMATION: Exam: XR Right Forearm Exam date and time: 09/26/2024 6:40 PM Age: 64 years old Clinical indication: Injury or trauma; Fall; Other: Pain TECHNIQUE: Imaging protocol: Radiologic exam of the right forearm. Views: 2 views. COMPARISON: CR XR FOREARM RT 2V 09/26/2024 6:40 PM FINDINGS: Bones/joints: Impacted distal radius metaphyseal fracture. Soft tissues: Distal forearm and wrist soft tissue swelling. IMPRESSION: Impacted distal radius metaphyseal fracture.
[2024-09-26 18:43] VITALS: BP 163/68; PULSE 90; RESP 18; TEMP 36.6; O2SAT 98; BMI 36.0
--- NOTE | 2024-09-26 19:14 | ED_ITS ---
Discharge Plan Disposition Patient Disposition: Home, Self-Care Condition: Good Prescriptions Prescriptions: No Action hydrochlorothiazide 12.5 mg capsule 12.5 mg PO QDAY 30 Days Qty: 30 5RF tolterodine [Detrol LA] 4 mg capsule,extended release 24hr 4 mg PO DAILY Qty: 30 2RF verapamil 120 mg capsule,ext rel. pellets 24 hr 120 mg PO DAILY Qty: 30 3RF fexofenadine [Diana Allergy] 60 mg tablet 60 mg PO DAILY azelastine-fluticasone 137-50 mcg/spray spray,non-aerosol 1 spray intranasal DAILY PRN doxycycline hyclate 50 mg capsule 50 mg PO DAILY pantoprazole 40 mg tablet,delayed release (DR/EC) 40 mg PO DAILY 90 Days Qty: 90 1RF Rx Instructions: TAKE ONE TABLET BY MOUTH EVERY DAY rosuvastatin 20 mg tablet 20 mg PO DAILY Qty: 90 1RF amlodipine 5 mg tablet See Rx Instructions .ROUTE .COMPLEX Qty: 90 1RF Dose Instruction: TAKE ONE TABLET BY MOUTH EVERY DAY Rx Instructions: TAKE ONE TABLET BY MOUTH EVERY DAY meloxicam 15 mg tablet 15 mg PO DAILY 90 Days Qty: 90 2RF zinc 15 mg Tablet 15 mg PO DAILY aspirin 81 mg Capsule 81 mg PO DAILY fluticasone propionate 110 mcg/actuation HFA aerosol inhaler 1 puff INHALATION BID PRN ascorbic acid (vitamin C) 250 MG tablet 500 mg PO DAILY lysine 500 MG tablet 500 mg PO DAILY Referrals Follow up/Referrals: Trever Nuno DO [Staff Physician] - See instructions Melvi Browning APRN [Primary Care Provider] - See instructions Activity Restrictions/Add. Instructions Additional Instructions/Restrictions: Rest the extremity, apply ice for 15 minutes as tolerated three or four times per day, Elevate the extremity as tolerated while you are resting. Take tylenol or ibuprofen for pain. Follow up with Dr. Nuno (orthopedics). I put in a referral but you need to call his office and schedule an appointment. Follow up with your regular doctor. GO TO THE ER FOR ANY WORSENING SYMPTOMS Clinical Impressions Clinical Impression: Distal radius fracture, right Instructions Patient Instructions: How to Take Care of Your Splint, DI for Distal Radius Fracture Print Language Print Language: Fijian Discharge ED Provider: Donato Gaspar [facility] [place] General Stated complaint: AO 09/26 @1800, right wrist pain Mode of Arrival: Ambulatory Source of Information: Patient Time Seen by Provider: 09/26/24 19:13 Description of Symptoms (Recalled from Triage Doc. by RN): FELL ONTO RIGHT WRIST HEENT Symptoms (Recalled from RN notes): No Resp Symptoms (Recalled from RN notes): No Skin Symptoms (Recalled from RN notes): No MS Symptoms (Recalled from RN notes): Yes Functional Status (Recalled from RN notes): CAN NOT BEND AT THE WRIST History of Present Illness Provider Complaint: She states that she fell backwards today and came down on her right hand and wrist. She has had right wrist and hand pain since then. Related Data Home Medications ?Medication ?Instructions ?Recorded ?Confirmed ascorbic acid (vitamin C) 250 mg 500 mg PO DAILY Supplement 06/21/19 09/04/24 tablet lysine 500 mg tablet 500 mg PO DAILY Supplement 06/21/19 09/04/24 fexofenadine 60 mg tablet (Diana 60 mg PO DAILY 08/11/22 09/04/24 Allergy) aspirin 81 mg capsule 81 mg PO DAILY 10/08/23 09/04/24 zinc 15 mg tablet 15 mg PO DAILY 10/08/23 09/04/24 azelastine 137 mcg-fluticasone 50 1 spray intranasal DAILY PRN 07/19/24 09/04/24 mcg/spray nasal spray doxycycline hyclate 50 mg capsule 50 mg PO DAILY 07/19/24 09/04/24 fluticasone propionate 110 1 puff inhalation BID PRN 07/19/24 09/04/24 mcg/actuation HFA aerosol inhaler Previous Rx's ?Medication ?Instructions ?Recorded pantoprazole 40 mg tablet,delayed 40 mg PO DAILY REFLUX 90 days #90 02/08/24 release tabs rosuvastatin 20 mg tablet 20 mg PO DAILY #90 tabs 05/08/24 hydrochlorothiazide 12.5 mg capsule 12.5 mg PO QDAY blood pressure 30 08/15/24 days #30 caps tolterodine 4 mg capsule,extended 4 mg PO DAILY #30 caps 08/15/24 release 24 hr (Detrol LA) verapamil 120 mg 24 hr 120 mg PO DAILY #30 caps 09/04/24 capsule,extended release amlodipine 5 mg tablet See Rx Instructions .Route 09/18/24 .COMPLEX #90 tabs meloxicam 15 mg tablet 15 mg PO DAILY 90 days #90 tabs 09/28/24 Allergies Allergy/AdvReac Type Severity Reaction Status Date / Time erythromycin base Allergy Unknown I-HIVES Verified 09/04/24 14:58 (ERYTHROMYCIN BASE) Penicillins (PENICILLINS) Allergy Unknown I-HIVES Verified 09/04/24 14:58 Worker's Comp Is this a Worker's Comp case?: No [facility] Disclaimer: The information contained in this section may have been updated after the patient was seen, as this information can be updated by other users. Medical History Bulging disc Ear infection Urinary tract infection History of COVID-19 Asthma Sinus headache Irritable bowel syndrome (IBS) Allergies Hypertension Hyperlipidemia Acid reflux Surgical History History of cholecystectomy H/O: hysterectomy Family History Father Cancer Diabetes Heart attack Hypertension Mother Stroke Social History Smoking Status: Never smoker alcohol intake: current alcohol intake frequency: 0-2 drinks per day substance use type: denies use current occupational status: retired Travel in the last 8 weeks: None caffeine: Yes Have you lived/traveled outside [place] in past 30 days?: No Contact w/someone who lives/traveled outside US past 30 days?: No Exposure to someone with infectious disease in past 14 days?: No Do you have a fever (greater than 100.4 F or 38 C)?: No Have you tested positive for COVID-19: No Exposed to someone with COVID-19 in past 14 days?: No Do you have a sore throat?: No Do you have a cough?: No Do you have any weakness?: No Do you have any diarrhea?: No Are you experiencing any unusual bleeding?: No Do you have any muscle aches/pain?: No Do you have any abdominal pain?: No Are you experiencing loss of taste or smell?: No ROS Obtained: Yes All systems reviewed & no additional complaints except as documented Constitutional Constitutional: Denies chills and Denies fever(s) Eyes Eyes: Denies eye discharge ENT Ears, Nose, Mouth, and Throat: Denies dizziness, Denies otalgia and Denies sore throat Cardiovascular Cardiovascular: Denies chest pain Respiratory Respiratory: Denies shortness of breath, Denies chest congestion, Denies cough, Denies stridor and Denies wheezing Gastrointestinal Gastrointestingal: Denies nausea or vomiting Musculoskeletal Musculoskeletal: Reports as per HPI Integumentary/Breasts Skin/Breast: Denies redness, Denies rash and Denies wounds Neurologic Neurologic: Denies dizziness and Denies paresthesias Allergic/Immunologic Allergic/Immunologic: Denies wheezing Physical Exam General General appearance: alert and in no apparent distress Head Head exam: atraumatic, normocephalic and normal inspection Eye Eye exam: Present normal appearance, PERRL and EOMI ENT ENT exam: Present normal exam, normal oropharynx, mucous membranes moist, TM's normal bilaterally and normal external ear exam Neck Neck exam: Present normal inspection, full ROM and trachea midline; Absent me ningismus or lymphadenopathy Chest Chest inspection: Present normal inspection and symmetric chest wall rise; Absent tenderness Respiratory Respiratory exam: Present normal lung sounds bilaterally; Absent respiratory distress Cardiovascular Cardiovascular exam: Present regular rate and normal rhythm; Absent JVD Abdominal Exam Abdominal exam: Present soft and normal bowel sounds; Absent distention, ten derness or guarding Extremities Exam Extremities exam: Present normal capillary refill; Absent calf tenderness Expanded Upper Extremity Exam Right: Shoulder exam: Present normal inspection and full ROM; Absent tenderness Arm exam: Present normal inspection and full ROM; Absent tenderness Elbow exam: Present normal inspection and full ROM; Absent tenderness, pain w/ pronation/supination or tenderness over radial head Forearm/Wrist exam: Present tenderness and swelling; Absent full ROM, abrasion, laceration, ecchymosis, deformity, crepitus, dislocation, erythema, tenderness over anatomical snuff box or pain with axial thumb loading Hand exam: Present full ROM, tenderness and swelling; Absent abrasion, laceration, skin avulsion, ecchymosis, deformity, crepitus, dislocation, erythema, amputation, nail avulsion or subungual hematoma Neuromotor exam: Normal wrist extension, thumb opposition, thumb IP flexion, thumb adduction and fingers 2-5 abduction Neurosensory exam: Normal radial nerve, ulnar nerve and median nerve Vascular exam: Normal capillary refill, radial pulse and ulnar pulse Back Exam Back exam: Present normal inspection; Absent tenderness Neurological Exam Neurological exam: Present alert and oriented X3 Psychiatric Psychiatric exam: Present normal affect and normal mood Skin Skin exam: Present warm, dry, intact and normal color Lymphatic Lymphatic Findings: no adenopathy Medical Decision Making Medical Records Medical records reviewed: No I reviewed the patient's medical records. Screening: Per USPSTF and CDC recommendations, given the prevalence of disease in our region, it is our hospital?s policy to screen for HIV and viral Hepatitis for all patients aged 18 and over and those with ongoing risk factors. Aaron Inquiry Pt receiving controlled substance: No Vital Signs: 09/26/24 18:43 Temperature 97.8 F Temperature Source Oral Pulse Rate [Left Radial] 90 Respiratory Rate 18 Blood Pressure [Left Arm] 163/68 H Blood Pressure Mean [Left Arm] 99 02 Sat by Pulse Oximetry 98 Orders (Tests/Meds): ORDERS Category Date Time Status Forearm XR right 2 views [XR forearm RT 2V] Stat Exams 09/26/24 18:30 Taken Wrist XR right minimum 3 views [XR wrist RT min 3V] Exams 09/26/24 18:29 Taken Stat XR hand RT min 3V Stat Exams 09/26/24 18:29 Taken Procedures Risk/Benefits of Procedure(s) Were Explained: Yes Orthopedic Splinting/Casting Injury #1: Side: right Upper Extremity Injury Location: forearm, wrist and hand Upper Extremity Immobilizer: posterior splint Post Cast/Splinting Neuro Status: intact and no change Post Cast/Splinting Vasc Status: intact and no change
[2024-09-26 20:23] VITALS: BP 163/68; PULSE 90; RESP 18; TEMP 36.6
== END 2024-09-26 20:25 | disposition home or self-care (01) ==
PROVIDERS: Emergency Provider Nurse Practitioner Family; PCP Nurse Practitioner Family
DX: S52.501A Unspecified fracture of the lower end of right radius, initial encounter for closed fracture (principal); M25.531 Pain in right wrist; M79.641 Pain in right hand; M79.601 Pain in right arm; W19.XXXA Unspecified fall, initial encounter; Y93.9 Activity, unspecified
CPT/HCPCS: 29125; 73090; 73110; 73130; 99212; G0381

== ENCOUNTER 2025-06-06 10:10 | Outpatient (CLI) | payer MEDICARE, OTHER, SELFPAY ==
--- OUTSIDE RECORDS SUMMARY | 2025-06-06 10:12 | XMS_ITS | Clinical Summary ---
Author Organization [facility] Address [address] [place] [address] Care Team Providers Care Supervisor Electronics Assembly Name Role Phone Unavailable Primary Care Provider Unavailabl e Social History Tobacco Use Types Packs/Day Years Used Date Smoking Tobacco: Never Assessed Comments Unknown Sex and Gender Information Value Date Recorded Sex Assigned at Not on file Legal Sex Female 8:51 PM EDT Gender Identity Not on file Sexual Orientation Not on file Plan of Treatment Health Maintenance Due Date Last Done Comments [facility]-Bone Density Scan 1960 [facility]-Depression Screening 1960 [facility]-Infant/Child/Adol SDOH Screenings 1960 [facility]- SDOH Screenings 1978 [facility]-Adult SDOH Screenings 1978 [facility]-Pap Smear 1981 [facility]-Cervical Cancer Screening 1990 [facility]-HPV/Cotest 1990 [facility]-DTaP,Tdap,and Td Vaccine s (1 - Tdap) 05/23/2003 05/22/2003 CT Colonography 2005 Colonoscopy 2005 FIT-DNA 2005 FIT 2005 FOBT 2005 Sigmoidoscopy 2005 [facility]-Colorectal Cancer Screening 2005 [facility]-Pneumococcal Vaccine: 50 + Years (1 of 1 - PCV) 2010 [facility]-Zoster Vaccines (1 of 2) 2010 [id number] Vaccine ( - 2023- season) 2024 09/18/2021, 12/20/2020, 11/22/2020 [facility]-Influenza Vaccine (#1) 2025 [facility]-RSV Vaccine: 60+ Years o r (1 - 1-dose 75+ series) 2035 [facility]-Hepatitis A Vaccines Aged Out 019, 06/15/2018 No longer eligible based on patient's age to complete this topic HPV Vaccines Aged Out No longer eligi ble based on patient's age to complete this topic UKY-HIB Vaccines Aged Out No longer e ligible based on patient's age to complete this topic [facility]-IPV Vaccines Aged Out No longer e ligible based on patient's age to complete this topic [facility]-Rotavirus Vaccines Aged Out No lo nger eligible based on patient's age to complete this topic
--- NOTE | 2025-06-06 10:30 | MM_ITS ---
PROCEDURE INFORMATION: Exam: MG Bilateral Screening 3D Mammography Exam date and time: 06/06/2025 10:16 AM Age: 65 years old Clinical indication: Screening. No family history of breast cancer. TECHNIQUE: Imaging protocol: Bilateral Screening tomosynthesis and 2D mammography including computer-aided detection (CAD) when performed. COMPARISON: 1. MG SCN DIG BREAST TOMOSYN JAIR 05/05/2024 10:22 AM 2. MG SCN DIG BREAST TOMOSYN JAIR 04/30/2023 10:22 AM 3. MG DIG MAMMO BILAT SCREENING 03/09/2022 2:54 PM 4. MG DIG MAMMO BILAT SCREENING 02/05/2021 7:41 AM FINDINGS: MAMMOGRAPHY: Breast composition: The breasts are almost entirely fatty. Mass: None. Architectural distortion: None. Calcifications: No suspicious calcifications. Asymmetric density: None. Skin thickening: None. Axillary adenopathy: None. Other: Stable retroareolar mildly dilated ducts, greater on the right than left. IMPRESSION: No mammographic evidence of malignancy. Annual screening is recommended unless otherwise clinically indicated. ASSESSMENT: BI-RADS Category 2: Benign.
== END 2025-06-06 23:59 | disposition home or self-care (01) ==
LOC: RAD 10:11
PROVIDERS: PCP Nurse Practitioner Family; Visit Provider Nurse Practitioner Family
DX: Z12.31 Encounter for screening mammogram for malignant neoplasm of breast (principal); R92.313 Mammographic fatty tissue density, bilateral breasts
CPT/HCPCS: 77063; 77067

== ENCOUNTER 2025-06-22 10:47 | Outpatient (CLI) | payer MEDICARE, OTHER, SELFPAY ==
--- OUTSIDE RECORDS SUMMARY | 2025-06-22 10:49 | XMS_ITS | Clinical Summary ---
Author Organization [facility] Address [address] [place] [address] Care Team Providers Care End User Consultant Name Role Phone Unavailable Primary Care Provider [...] [facility]-Bone Density Scan 1960 [facility]-Depression Screening 1960 [facility]-/Child/Adol SDOH Screenings 1960 [facility]- SDOH Screenings 1978 [facility]-Adult SDOH Screenings 1978 [facility]-Pap Smear 1981 [facility]-Cervical Cancer Screening 1990 [facility]-HPV/Cotest 1990 [facility]-DTaP,Tdap,and Td Vaccine s (1 - Tdap) 05/23/2003 05/22/2003 CT Colonography 2005 Colonoscopy 2005 FIT-DNA 2005 FIT 2005 FOBT 2005 Sigmoidoscopy 2005 [facility]-Colorectal Cancer Screening 2005 [facility]-Pneumococcal Vaccine: 50 + Years (1 of 1 - PCV) 2010 [facility]-Zoster Vaccines (1 of 2) 2010 [id number] Vaccine (4 - 2024- season) 2025 09/18/2021, 12/20/2020, 11/22/2020 [facility]-Influenza Vaccine (#1) 2025 [...]
--- NOTE | 2025-06-22 10:50 | XR_ITS ---
FINAL REPORT CLINICAL HISTORY: right lower abd pain x 2 to 3 weeks COMPARISON: None FINDINGS: A single view of the abdomen was obtained. There is a normal bowel gas pattern. Mild fecal impaction is noted of the right colon. The patient is status postcholecystectomy. Pelvic calcifications likely represent phleboliths. IMPRESSION: Mild fecal impaction. Reviewed, Interpreted and Dictated by Radha Ojeda MD Transcribed by Heather Sarkar Authenticated and [facility]
[2025-06-22 10:59] LABS: Microscopic, Urine URINE MICROSCOPIC (MICROSCOPIC)
[2025-06-22 11:44] LABS: Hematocrit 38.4 % (37.0-47.0); Hemoglobin 12.9 g/dL (12.2-16.2); Immature Granulocytes % 0.4 %; Mean Corpuscular HGB Conc 33.6 g/dL (31.8-35.4); Mean Corpuscular Hemoglobin 29.8 pg (27.0-31.2); Mean Corpuscular Volume 88.7 fl (81-99); Nucleated Red Blood Cells % 0 %; Platelet Count 239 K/mm3 (142-424); Red Blood Count 4.33 M/mm3 (4.20-5.40); Red Cell Distribution Width-SD 40.2 fL; White Blood Count 5.4 K/mm3 (4.8-10.8)
[2025-06-22 12:03] LABS: Albumin Level 4.6 g/dl (3.5-5.0); Chloride 102 mmol/L (98-107); Potassium 4.2 mmoL/L (3.5-5.1); Sodium 139 mmol/L (136-145)
[2025-06-22 12:06] LABS: Alanine Aminotransferase 36 U/L (12-78); Albumin/Globulin Ratio 1.6 (1.1-1.8); Alkaline Phosphatase 74 U/L (38-126); Anion Gap 15.2 mEq/L (5-15); Aspartate Amino Transferase 36 U/L (14-36); Bilirubin,Total 0.6 mg/dl (0.2-1.3); Blood Urea Nitrogen 15 mg/dl (7-17); Calcium 9.6 mg/dl (8.4-10.2); Carbon Dioxide 26 mmol/L (22.0-30.0); Creatinine,Serum 0.70 mg/dl (0.52-1.04); Estimated Glomerular Filt Rate 84 ml/min (>60); GFR (African American) 102 ML/MIN (>60); Globulin 2.8 g/dL (1.3-3.2); Glucose 96 mg/dl (74-100); Total Protein,Serum 7.4 g/dl (6.3-8.2)
[2025-06-22 12:50] LABS: Bilirubin,Urine Negative (Negative); Color,Urine YELLOW (Yellow); Glucose,Urine (UA) Negative (Negative); Ketones,Urine Negative (Negative); Leukocyte Esterase,Urine Negative (Negative); PH,Urine 6.0 (5.0-8.5); Protein,Urine Negative (Negative); Specific Gravity, Urine 1.010 (1.005-1.030); Urobilinogen,Urine 0.2 EU/dl (0.2)
[2025-06-22 13:06] LABS: Bacteria,Urine 3+ /lpf
== END 2025-06-22 23:59 | disposition home or self-care (01) ==
LOC: LAB 10:48
PROVIDERS: PCP Nurse Practitioner Family; Visit Provider Nurse Practitioner Family
DX: R10.31 Right lower quadrant pain (principal)
CPT/HCPCS: 36415; 74018; 80053; 81001; 82785; 85025; 85651; 86003; 86008; 87086

== ENCOUNTER 2025-06-25 13:51 | Outpatient (CLI) | payer MEDICARE, OTHER, SELFPAY ==
--- OUTSIDE RECORDS SUMMARY | 2025-06-25 13:55 | XMS_ITS | Clinical Summary ---
Author Organization [facility] Address [address] [place] [address] Care Team Providers Care Diet Kitchen Cook Name Role Phone Unavailable Primary Care Provider [...] 2010 [facility]-Zoster Vaccines (1 of 2) 2010 [id number] Vaccine (4 - 2024- season) 2025 09/18/2021, [...]
== END 2025-06-25 23:59 | disposition home or self-care (01) ==
LOC: LAB.DROPOF 13:51
PROVIDERS: PCP Nurse Practitioner Family; Visit Provider Nurse Practitioner Family
DX: R10.31 Right lower quadrant pain (principal)
CPT/HCPCS: 87086

== ENCOUNTER 2025-06-27 09:36 | Outpatient (CLI) | payer MEDICARE, OTHER, SELFPAY ==
--- OUTSIDE RECORDS SUMMARY | 2025-06-27 09:45 | XMS_ITS | Clinical Summary ---
Author Organization [facility] Address [address] [place] [address] Care Team Providers Care Picture Enlarger Name Role Phone Unavailable Primary Care Provider [...] 2010 [facility]-Zoster Vaccines (1 of 2) 2010 [id number] Vaccine (4 - 2024- season) 2025 09/18/2021, [...]
--- NOTE | 2025-06-27 10:00 | CT_ITS ---
FINAL REPORT TECHNIQUE: Thin section axial images are obtained through the abdomen and pelvis after intravenous contrast. Reconstruction images were obtained from the axial data. Exam was performed using dose reduction techniques. CLINICAL HISTORY: right sided abd pain COMPARISON: 09/30/2019 FINDINGS: LUNG BASES: Lung bases are clear. Heart size is normal. LIVER: Fatty infiltrated. No focal lesion. GALLBLADDER/BILIARY SYSTEM: Gallbladder is absent. No biliary dilatation. SPLEEN: Unremarkable. PANCREAS: Unremarkable. ADRENALS: Unremarkable. KIDNEYS/URETERS/BLADDER: There is a nonobstructing left renal stone. There is no mass or hydronephrosis. Unremarkable urinary bladder. GI TRACT: No small bowel obstruction or dilatation. Normal appendix. There is moderate retained stool. Abnormal attenuation is seen surrounding the mid sigmoid colon where there is mild wall thickening and diverticula present. Favor mild, uncomplicated diverticulitis. There is no abscess or perforation. PELVIC ORGANS: Uterus is absent. LYMPH NODES/RETROPERITONEUM/MESENTERY: No lymphadenopathy. No abdominal aortic aneurysm. ABDOMINAL WALL: The abdominal wall is intact. FREE FLUID: No ascites. BONES: No acute osseous abnormality. IMPRESSION: Mild, uncomplicated, acute sigmoid diverticulitis. Reviewed, Interpreted and Dictated by Moni Hardy MD Transcribed by Domi Duran Authenticated and [facility]
[2025-06-27] MEDS: IOPAMIDOL-370 (76%);100ML BOTTLE 75 ML IV (10:06)
[2025-06-27] MEDS: BARIUM SULFATE(READI-CAT2);450ML BOTTLE 450 ML PO (10:06)
== END 2025-06-27 23:59 | disposition home or self-care (01) ==
PROVIDERS: PCP Nurse Practitioner Family; Visit Provider Nurse Practitioner Family
DX: K57.32 Diverticulitis of large intestine without perforation or abscess without bleeding (principal); K56.41 Fecal impaction; G47.33 Obstructive sleep apnea (adult) (pediatric)
CPT/HCPCS: 74177; G0399; Q9967

== ENCOUNTER → 2025-07-16 08:12 | Outpatient (CLI) | payer MEDICARE, OTHER, SELFPAY | LOC: SL 08:12 | PROVIDERS: PCP Internal Medicine; Visit Provider Internal Medicine | DX: G47.33 Obstructive sleep apnea (adult) (pediatric) (principal) ==